=== PATIENT | female | born 1985 ===

== ENCOUNTER 2016-09-15 06:25 | Inpatient (IN) ==
[2016-09-15] MEDS ORDERED: ONDANSETRON 4 MG/2 ML VIAL IV PRN (07:22)
[2016-09-15] MEDS ORDERED: MEPERIDINE 50 MG/1 ML VIAL IV PRN (07:22)
[2016-09-15] MEDS ORDERED: OXYTOCIN/LR 20 UNIT/1,000 ML BAG IV SCH (07:30)
[2016-09-15] MEDS ORDERED: AMPICILLIN INJ 2,000 MG in SODIUM CHLORIDE 0.9% 100 ML IV ONE (07:42)
[2016-09-15 07:53] LABS: Basophils % 0.4 % (0.0-0.8); Eosinophils # 0.2 10*3/uL (0.0-0.87); Hematocrit 36.7 VOL% (35.7-47.0); Hemoglobin 12.5 GM/DL (12.0-16.0); Immature Granulocytes % 0.6 %; Immature Granulocytes Absolute 0.05 #; Lymphocytes # 1.7 10*3/uL (1.4-4.0); Lymphocytes % 21.3 % (21.3-54.2); Mean Corpuscular HGB Conc 34.1 GM/DL (32-36); Mean Corpuscular Hemoglobin 31 PG (27-34); Mean Corpuscular Volume 90.4 FL (87-102); Mean Platelet Volume 10.7 FL (9.6-12.0); Monocytes # 0.7 10*3/uL (0.11-0.8); Monocytes % 8.7 % (1.7-12.7); Neutrophils # 5.3 10*3/uL (1.4-7.4); Platelet Count 280 T/CUMM (130-400); Red Blood Count 4.06 MC/CUMM (3.8-5.5); Red Cell Distribution Width 13.3 % (9.3-17.3)
[2016-09-15] MEDS: LACTATED RINGERS 1,000 ML IV SCH ×3 (07:59→14:40)
[2016-09-15] MEDS ORDERED: PROMETHAZINE 25 MG/1 ML VIAL IM ONE (08:04)
[2016-09-15] MEDS ORDERED: hydrOXYzine HCL 25 MG/1 ML VIAL IM PRN (08:04)
[2016-09-15] MEDS ORDERED: diphenhydrAMINE 50 MG/1 ML VIAL IV PRN ×2 (08:04)
[2016-09-15] MEDS ORDERED: fentaNYL 2 MCG/ROPIV 0.2% EPID 150 ML EPIDURAL SCH (08:04)
[2016-09-15] MEDS ORDERED: ONDANSETRON 4 MG/2 ML VIAL IV ONE (08:04)
[2016-09-15] MEDS ORDERED: FAMOTIDINE 20 MG/2 ML VIAL IV ONE (08:04)
[2016-09-15] MEDS ORDERED: CITRIC ACID/SODIUM CITRATE 30 ML UDCUP PO ONE (08:04)
[2016-09-15] MEDS ORDERED: LACTATED RINGERS 1,000 ML IV ONE (08:04)
[2016-09-15 08:25] LABS: Albumin 2.6 G/DL (3.4-5.0); Bilirubin,Total 0.6 MG/DL (0.2-1.0); Calcium 9.4 MG/DL (8.5-10.1); Osmolality,Calculated 275.4 MOS/KG (273-304); Potassium 3.9 MMOL/L (3.5-5.1); Total Protein 6.1 G/DL (6.4-8.3)
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
[2016-09-15 10:12] LABS: HIV Antigen/Antibody Result Nonreactive (Nonreactive)
[2016-09-15] MEDS: ePHEDrine 50 MG/ML AMP IV PRN ×3 (11:49→12:36)
[2016-09-15] MEDS ORDERED: AMPICILLIN INJ 1,000 MG in SODIUM CHLORIDE 0.9% 100 ML IV SCH (12:00)
[2016-09-15 12:31] LABS: Apearance,Urine CLEAR (Clear); Bilirubin,Urine Negative (Negative); Blood, Urine Negative (Negative); Glucose,Urine (UA) Negative (Negative); Ketones,Urine 20 mg/dL (Negative); Mucus,Urine Occasional /LPF (Occasional); Nitrite,Urine Negative (Negative); Protein,Urine Negative; RBC,Urine 2 /HPF (0-4); Squamous Epithelial Cell,Urine Occasional /HPF (0-10); Urine Color Yellow (Yellow); Urine Urobilinogen < 2.0 EU/DL (0.2-1.0); WBC,Urine <1 /HPF (0-6)
[2016-09-15] MEDS ORDERED: ACETAMINOPHEN/CODEINE 300-30 MG TABLET PO PRN (16:22)
--- NOTE | 2016-09-15 17:49 | Event Note ---
HPI: Ms. Cole presented to the labor department for elective induction of labor due to term . The risk and benefits were thoroughly discussed with this patient significant other, plan of care was discussed with Dr. Gonzales and all parties were in agreement plan. Stage I: The patient was admitted she received IV fluids and IV Pitocin per protocol. Artificial rupture membranes was performed clear fluid noted. Epidural anesthesia was obtained. The patient progressed in labor with a CAT 1 tracing. She had a few episodes of the CAT 2 tracing which was correct with oxygenation and position change. Otherwise the patient had an uneventful course of labor. Stage II: The patient was complete and complained of pressure and desire to push. She pushed for approximately 5 minutes after which time the infant's head was delivered. The mouth and nose suctioned on perineum. The remainder the was delivered at 1609 a viable male infant was noted. Apgars were 8 at 1 minute and 9 at 5 minutes. weight was 7 lbs. 14 oz. A cord pH was obtained and sent to the lab. The was placed on the mom's abdomen for skin to skin bonding. Stage III: A spontaneous delivery of a Randolph placenta with a three-vessel cord noted. Placenta was further examined appeared to be grossly intact. The vagina cervix inspected with no tears or lacerations noted. Estimated blood loss is approximately 150 cc. At the time of dictation mother and baby both in stable condition.
[2016-09-15] MEDS ORDERED: ACETAMINOPHEN 325 MG TABLET PO PRN (20:25)
[2016-09-15] MEDS ORDERED: oxyCODONE/ACETAMINOPHEN 5-325 MG TABLET PO PRN (20:25)
[2016-09-15] MEDS ORDERED: HYDROCORTISONE 2.5% RECTAL CREAM 30 GM TUBE TOP PRN (20:25)
[2016-09-15] MEDS ORDERED: LANOLIN 50% CREAM 0.3 OZ TUBE TOP PRN (20:25)
[2016-09-15] MEDS ORDERED: WITCH HAZEL PADS 100/JAR TOP PRN (20:25)
[2016-09-15] MEDS ORDERED: BENZOCAINE 20%/MENTHOL 0.5% SPRAY 56 GM CAN TOP PRN (20:25)
[2016-09-15] MEDS ORDERED: BISACODYL 10 MG SUPP RECTAL PRN (20:25)
[2016-09-15] MEDS ORDERED: DIPH/TET/ACEL PERT BOOSTER VACCINE 0.5 ML VIAL IM ONE (20:25)
[2016-09-15] MEDS ORDERED: RHO(D) IMMUNE GLOBULIN 300 MCG SYRINGE IM ONE (20:25)
[2016-09-15] MEDS ORDERED: MEASLES/MUMPS/RUBELLA VACCINE 0.5 ML VIAL SUBCUT ONE (20:25)
[2016-09-15] MEDS: DOCUSATE SODIUM 100 MG CAPSULE PO SCH (21:43)
[2016-09-16] MEDS: IBUPROFEN 800 MG TABLET PO PRN ×3 (02:04→22:49)
[2016-09-16] MEDS: oxyCODONE/ACETAMINOPHEN 5-325 MG TABLET PO PRN ×2 (02:04→07:46)
[2016-09-16 06:26] LABS: Basophils % 0.3 % (0.0-0.8); Eosinophils # 0.2 10*3/uL (0.0-0.87); Eosinophils % 1.7 % (0.00-10.9); Hematocrit 34.3 VOL% (35.7-47.0); Hemoglobin 11.5 GM/DL (12.0-16.0); Immature Granulocytes % 0.5 %; Immature Granulocytes Absolute 0.05 #; Lymphocytes # 2.1 10*3/uL (1.4-4.0); Mean Corpuscular HGB Conc 33.5 GM/DL (32-36); Mean Corpuscular Hemoglobin 31 PG (27-34); Mean Corpuscular Volume 91.2 FL (87-102); Mean Platelet Volume 11.1 FL (9.6-12.0); Monocytes # 0.8 10*3/uL (0.11-0.8); Neutrophils # 7.8 10*3/uL (1.4-7.4); Neutrophils % 71.5 % (38.7-73.9); Platelet Count 258 T/CUMM (130-400); Red Blood Count 3.76 MC/CUMM (3.8-5.5); Red Cell Distribution Width 13.4 % (9.3-17.3); White Blood Count 10.9 T/CUMM (4-12)
--- NOTE | 2016-09-16 06:54 | Anesthesia Post-Op ---
Anesthesia Post OP - Post Ansesthetic Evaluation Patient seen in post op: Yes Resp: within normal limits CV: within normal limits Mental: within normal limits Temp: within normal limits [id number]: within normal limits Nausea and Vomiting: within normal limits Pain: within normal limits
[2016-09-16] MEDS: DOCUSATE SODIUM 100 MG CAPSULE PO SCH ×3 (07:47→22:49)
--- NOTE | 2016-09-16 09:09 | OB/GYN Progress Note ---
Assessment and Plan (1) Term Status: Acute Assessment and plan: Admit IV fluids IV Pitocin per protocol Artificial rupture membranes when appropriate Internal monitors if indicated Epidural anesthesia if desired Anticipate Current Visit: Yes (2) Vaginal delivery Status: Acute Assessment and plan: Initiate routine pp orders. 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 Bonding well with . 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 - Constitutional Vitals: Vital Signs Temp Pulse Resp BP Pulse Ox 09/16/16 07:21 97.3 F L 70 20 134/80 97 09/16/16 03:00 18 09/15/16 20:15 97.7 F 90 18 112/57 96 09/15/16 16:00 97.9 F 71 18 108/55 100 09/15/16 12:00 98.2 F 88 20 140/59 96 General appearance: no acute distress - Antepartum / Post Post Exam Breast: bilateral: normal Abdomen obstetrics: Present: bowel sounds normal Vagina: Present: normal moisture, discharge (light lochia rubra) Uterus exam: Present: enlarged Anus/Rectum: Present: normal perianal skin - Respiratory Respiratory exam: Present: clear to auscultation bilaterally - Cardiovascular Cardiovascular exam: Present: regular rate and rhythm - GI/Abdominal GI/Abdominal exam: Present: normal bowel sounds, soft - Extremities Exam Extremities exam: Present: normal inspection - Neurological Exam Neurological exam: Present: alert, oriented X3 - Psychiatric Psychiatric exam: Present: normal affect, normal mood - Skin Skin exam: Present: normal color, warm Results - Labs CBC & BMP: 09/16/16 04:28 09/15/16 07:37
[2016-09-17 07:37] VITALS: BP 122/71
[2016-09-17] MEDS: IBUPROFEN 800 MG TABLET PO PRN (08:25)
[2016-09-17] MEDS: oxyCODONE/ACETAMINOPHEN 5-325 MG TABLET PO PRN (08:26)
[2016-09-17] MEDS: DOCUSATE SODIUM 100 MG CAPSULE PO SCH (08:26)
--- NOTE | 2016-09-17 09:05 | Discharge Summary ---
Hospital Course - Hospital Course Hospital Course: Ms. Cole presented to the labor department for elective induction of labor due to term . She delivered a viable with no complications. She has followed a normal course and she has done well. Her bleeding is minimal with no odor. Her perineum is intact. Her fundus is firm and midline. Her vital signs and lab values are stable. She is bonding well with her . She will be discharged home with prescriptions for pain and a follow- up appointment in our office. Diagnosis - Discharge Diagnosis (1) Term Status: Acute (2) Vaginal delivery Status: Acute Specialty Discharge - Follow Up or Referrals Follow up with: Mayte Gonzales MD [Physician] - (Follow-up in 6 weeks) Discharge Plan - Discharge Data Disposition: Disch To Home/Self Care Condition at Discharge: Stable Discharge Diet: advance to your usual diet, regular diet Activity: resume usual activities as tolerated Hygiene: may shower Weight Bearing at Discharge: weight bear as tolerated Driving: no restrictions Contact your physician if you experience:: fever over 101, pain uncontrolled by pain medications - Discharge Medications New Acetamin/Codeine 300-30 Tab [Tylenol/Codeine #3] 2 tablet PO Q4H PRN #30 tablet PRN Reason: Pain Mild (1-3) Ibuprofen Tab [Motrin Tab] 800 mg PO Q6H PRN #30 tablet PRN Reason: Pain Moderate (4-7) No Action Multivitamin () [ Vitamin] 1 tablet PO DAILY - Follow Up or Referral - Forms/Instructions Exam - Constitutional Vitals: Period Temp Pulse Resp BP Sys/Parham Pulse Ox Last 24 Hr 96.8 F-98.2 F 62-81 18-20 96-124/57-73 95-99 General appearance: no acute distress - Respiratory Respiratory exam: Present: clear to auscultation bilaterally - Cardiovascular Cardiovascular exam: Present: regular rate and rhythm - GI/Abdominal GI/Abdominal exam: Present: normal bowel sounds, soft - Extremities Exam Extremities exam: Present: normal inspection - Neurological Exam Neurological exam: Present: alert, oriented X3 - Psychiatric Psychiatric exam: Present: normal affect, normal mood - Skin Skin exam: Present: normal color, warm DS: Provider Date of admission: 09/15/16 06:45 Primary care physician: River Arevalo MD Attending physician on admission: Mayte Gonzales MD Consults: 09/15/16 07:22 Consult to Anesthesiology [CONS] Routine Consulting Provider: Reason for Anesthesiology: Epidural Consult Comment: Epidural for pain managment 09/15/16 20:25 Consult to Hvac Service Manager [CONS] Routine Consult Hvac Service Manager: Breast Feeding 09/16/16 07:31 Consult to Dietitian [CONS] Routine Reason for Dietitian: Dietary Consult Discharging clinician: Nicole Aggarwal CNM Expected date of discharge: 09/17/16
== END 2016-09-17 11:25 | disposition home or self-care (01) | DRG 560 ==
LOC: N.LDOUT 06:25 → N.LD 06:30 → N.OB 20:15
PROVIDERS: ADMIT Obstetrics & Gynecology; ATTEND Obstetrics & Gynecology

== ENCOUNTER 2018-01-27 13:23 | Inpatient (IN) ==
[2018-01-27] MEDS ORDERED: LACTATED RINGERS 250 ML IV ONE (14:16)
[2018-01-27] MEDS ORDERED: BUTORPHANOL 2 MG/ML VIAL IV PRN (14:16)
[2018-01-27] MEDS ORDERED: MEPERIDINE 50 MG/1 ML VIAL IV PRN (14:16)
[2018-01-27] MEDS ORDERED: ONDANSETRON 4 MG/2 ML VIAL IV PRN (14:16)
[2018-01-27 14:46] LABS: Basophils % 0.4 % (0.0-0.8); Eosinophils # 0.3 10*3/uL (0.0-0.87); Eosinophils % 3.9 % (0.00-10.9); Hematocrit 34.7 VOL% (35.7-47.0); Hemoglobin 11.3 GM/DL (12.0-16.0); Immature Granulocytes % 0.4 %; Immature Granulocytes Absolute 0.03 #; Lymphocytes # 1.5 10*3/uL (1.4-4.0); Lymphocytes % 19.4 % (21.3-54.2); Mean Corpuscular HGB Conc 32.6 GM/DL (32-36); Mean Corpuscular Hemoglobin 29 PG (27-34); Mean Corpuscular Volume 90.1 FL (87-102); Mean Platelet Volume 10.6 FL (9.6-12.0); Monocytes # 0.5 10*3/uL (0.11-0.8); Monocytes % 6.8 % (1.7-12.7); Neutrophils # 5.3 10*3/uL (1.4-7.4); Neutrophils % 69.1 % (38.7-73.9); Platelet Count 271 T/CUMM (130-400); Red Blood Count 3.85 MC/CUMM (3.8-5.5); Red Cell Distribution Width 13.3 % (9.3-17.3); White Blood Count 7.6 T/CUMM (4-12)
[2018-01-27 14:56] LABS: Albumin 2.3 G/DL (3.4-5.0); Bilirubin,Total 0.6 MG/DL (0.2-1.0); Calcium 8.7 MG/DL (8.5-10.1); Osmolality,Calculated 280.3 MOS/KG (273-304); Potassium 3.9 MMOL/L (3.5-5.1); Total Protein 6.7 G/DL (6.4-8.3)
[2018-01-27] MEDS ORDERED: DINOPROSTONE VAG GEL 10 MG SYRINGE VAG ONE (15:39)
[2018-01-28] MEDS ORDERED: CITRIC ACID/SODIUM CITRATE 30 ML UDCUP PO ONE (00:19)
[2018-01-28] MEDS ORDERED: FAMOTIDINE 20 MG/2 ML VIAL IV ONE (00:19)
[2018-01-28] MEDS ORDERED: ePHEDrine 50 MG/ML AMP ONE (00:24)
[2018-01-28] MEDS ORDERED: LIDOCAINE 1% 50 ML VIAL ONE (00:26)
[2018-01-28] MEDS ORDERED: miSOPROStol 200 MCG TABLET ONE (00:26)
[2018-01-28] MEDS ORDERED: fentaNYL 2 MCG/ROPIV 0.2% EPID 100 ML EPIDURAL SCH (00:30)
[2018-01-28] MEDS: LACTATED RINGERS 1,000 ML IV SCH ×2 (00:35→01:56)
[2018-01-28] MEDS ORDERED: CARBOPROST TROMETHAMINE 250 MCG/ML AMP IM ONE (00:57)
[2018-01-28] MEDS ORDERED: METHYLERGONOVINE 0.2 MG/1 ML AMP ONE (00:57)
[2018-01-28] MEDS ORDERED: OXYTOCIN/LR 20 UNIT/1,000 ML BAG IV ONE (01:52)
[2018-01-28] MEDS ORDERED: OXYTOCIN/LR 20 UNIT/1,000 ML BAG IV SCH (05:50)
[2018-01-28 06:59] LABS: Apearance,Urine CLEAR (Clear); Bilirubin,Urine Negative (Negative); Blood, Urine Negative (Negative); Glucose,Urine (UA) Negative (Negative); Ketones,Urine Negative (Negative); Mucus,Urine Occasional /LPF (Occasional); Nitrite,Urine Negative (Negative); Protein,Urine Negative; RBC,Urine 1 /HPF (0-4); Squamous Epithelial Cell,Urine Occasional /HPF (0-10); Urine Color Yellow (Yellow); Urine Urobilinogen < 2.0 EU/DL (0.2-1.0); WBC,Urine 2 /HPF (0-6)
[2018-01-28] MEDS ORDERED: OXYTOCIN/LR 30 UNIT/1,000 ML BAG IV ONE (08:16)
[2018-01-28] MEDS ORDERED: IBUPROFEN 800 MG TABLET PO ONE (11:03)
[2018-01-28] MEDS: oxyCODONE/ACETAMINOPHEN 5-325 MG TABLET PO PRN (15:08)
[2018-01-28] MEDS: IBUPROFEN 800 MG TABLET PO PRN (18:37)
[2018-01-29 04:58] LABS: Basophils % 0.4 % (0.0-0.8); Eosinophils # 0.6 10*3/uL (0.0-0.87); Eosinophils % 6.2 % (0.00-10.9); Hematocrit 34.7 VOL% (35.7-47.0); Hemoglobin 11.2 GM/DL (12.0-16.0); Immature Granulocytes % 0.6 %; Immature Granulocytes Absolute 0.06 #; Lymphocytes # 2.2 10*3/uL (1.4-4.0); Lymphocytes % 23.2 % (21.3-54.2); Mean Corpuscular HGB Conc 32.3 GM/DL (32-36); Mean Corpuscular Hemoglobin 30 PG (27-34); Mean Corpuscular Volume 91.6 FL (87-102); Monocytes # 0.8 10*3/uL (0.11-0.8); Monocytes % 8.7 % (1.7-12.7); Neutrophils # 5.8 10*3/uL (1.4-7.4); Neutrophils % 60.9 % (38.7-73.9); Platelet Count 244 T/CUMM (130-400); Red Blood Count 3.79 MC/CUMM (3.8-5.5); Red Cell Distribution Width 13.4 % (9.3-17.3); White Blood Count 9.6 T/CUMM (4-12)
[2018-01-29] MEDS: oxyCODONE/ACETAMINOPHEN 5-325 MG TABLET PO PRN ×2 (08:12→19:45)
[2018-01-29] MEDS: IBUPROFEN 800 MG TABLET PO PRN ×2 (08:13→19:44)
[2018-01-30] MEDS: IBUPROFEN 800 MG TABLET PO PRN ×2 (03:48→11:10)
[2018-01-30] MEDS: oxyCODONE/ACETAMINOPHEN 5-325 MG TABLET PO PRN ×2 (03:48→11:09)
[2018-01-30 07:17] VITALS: BP 120/68
[2018-01-30] MEDS ORDERED: DOCUSATE SODIUM 100 MG CAPSULE PO SCH (09:00)
[2018-01-30] MEDS ORDERED: DIPH/TET/ACEL PERT BOOSTER VACCINE 0.5 ML VIAL IM ONE (10:14)
[2018-01-30] MEDS ORDERED: INFLUENZA VIRUS VACCINE 0.5 ML SYRINGE IM ONE (10:14)
[2018-01-30] MEDS ORDERED: MEASLES/MUMPS/RUBELLA VACCINE 0.5 ML VIAL SUBCUT ONE (10:14)
== END 2018-01-30 11:50 | disposition home or self-care (01) | DRG 560 ==
LOC: N.LDOUT 13:23 → N.LD 13:24 → N.OB 01-28 11:46
PROVIDERS: ADMIT Obstetrics & Gynecology; ATTEND Obstetrics & Gynecology

== ENCOUNTER 2019-01-31 06:39 | Inpatient (IN) ==
[2019-01-31] MEDS ORDERED: FAMOTIDINE 20 MG/2 ML VIAL IV ONE (07:25)
[2019-01-31] MEDS ORDERED: ceFAZolin 3,000 MG in SYRINGE 1 EACH IV ONE (07:25)
[2019-01-31] MEDS ORDERED: CITRIC ACID/SODIUM CITRATE 30 ML UDCUP PO ONE (07:25)
[2019-01-31] MEDS ORDERED: OXYTOCIN 10 UNIT/ML VIAL IM ONE (07:27)
[2019-01-31] MEDS ORDERED: OXYTOCIN/LR 30 UNIT/1,000 ML BAG IV ONE (07:27)
[2019-01-31] MEDS ORDERED: LACTATED RINGERS 1,000 ML IV ONE ×2 (07:28→11:47)
[2019-01-31] MEDS ORDERED: LACTATED RINGERS 1,000 ML IV SCH (07:30)
[2019-01-31 07:51] LABS: Basophils % 0.6 % (0.0-0.8); Eosinophils # 0.3 10*3/uL (0.0-0.87); Eosinophils % 4.6 % (0.00-10.9); Hematocrit 35.3 VOL% (35.7-47.0); Hemoglobin 11.5 GM/DL (12.0-16.0); Immature Granulocytes % 0.6 %; Immature Granulocytes Absolute 0.04 #; Lymphocytes # 1.9 10*3/uL (1.4-4.0); Mean Corpuscular HGB Conc 32.6 GM/DL (32-36); Mean Corpuscular Volume 91.7 FL (87-102); Mean Platelet Volume 9.9 FL (9.6-12.0); Monocytes % 7.8 % (1.7-12.7); Neutrophils % 59.4 % (38.7-73.9); Platelet Count 355 T/CUMM (130-400); Red Blood Count 3.85 MC/CUMM (3.8-5.5); Red Cell Distribution Width 13.2 % (9.3-17.3); White Blood Count 7.2 T/CUMM (4-12)
[2019-01-31 08:41] LABS: Albumin 2.3 G/DL (3.4-5.0); Bilirubin,Total 0.5 MG/DL (0.2-1.0); Calcium 8.3 MG/DL (8.5-10.1); Osmolality,Calculated 276.4 MOS/KG (273-304); Total Protein 6.4 G/DL (6.4-8.3)
[2019-01-31] MEDS ORDERED: DEXAMETHASONE 4 MG/1 ML VIAL ONE (09:45)
[2019-01-31] MEDS ORDERED: ROPIVACAINE 0.5% 30 ML VIAL ONE (09:45)
[2019-01-31 09:47] LABS: Cord Venous Blood HCO3 22.5 MMOL/L; Cord Venous Blood PCO2 44.8 MMHG; Cord Venous Blood PO2 33.3
[2019-01-31 09:57] LABS: Apearance,Urine CLEAR (Clear); Bilirubin,Urine Negative (Negative); Blood, Urine Negative (Negative); Glucose,Urine (UA) Negative (Negative); Ketones,Urine Negative (Negative); Mucus,Urine Occasional /LPF (Occasional); Nitrite,Urine Negative (Negative); Protein,Urine Negative; RBC,Urine 7 /HPF (0-4); Squamous Epithelial Cell,Urine Occasional /HPF (0-10); Urine Color Yellow (Yellow); Urine Specific Gravity 1.016 (1.001-1.035); Urine Urobilinogen < 2.0 EU/DL (0.2-1.0); WBC,Urine <1 /HPF (0-6)
[2019-01-31] MEDS ORDERED: OXYTOCIN/LR 20 UNIT/1,000 ML BAG IV ONE (10:04)
[2019-01-31] MEDS ORDERED: ACETAMINOPHEN 325 MG TABLET PO PRN (10:04)
[2019-01-31] MEDS ORDERED: ONDANSETRON 4 MG/2 ML VIAL IV PRN (10:04)
[2019-01-31] MEDS ORDERED: RHO(D) IMMUNE GLOBULIN 300 MCG SYRINGE IM ONE (10:04)
[2019-01-31] MEDS ORDERED: BUPIVACAINE SPINAL 0.75% 2 ML AMP SPINAL ONE (11:46)
[2019-01-31] MEDS ORDERED: ONDANSETRON 4 MG/2 ML VIAL ONE (11:47)
[2019-01-31] MEDS ORDERED: MORPHINE 10 MG/10 ML VIAL ONE (11:47)
[2019-01-31] MEDS ORDERED: ePHEDrine 50 MG/ML AMP ONE (11:47)
[2019-01-31] MEDS ORDERED: PHENYLEPHRINE 1 MG/10 ML SYRINGE IV ONE (11:47)
[2019-01-31] MEDS: ceFAZolin 1,000 MG in SYRINGE 1 EACH IV SCH (17:45)
[2019-01-31 18:07] LABS: Basophils % 0.1 % (0.0-0.8); Hematocrit 33.2 VOL% (35.7-47.0); Hemoglobin 10.7 GM/DL (12.0-16.0); Immature Granulocytes % 0.4 %; Immature Granulocytes Absolute 0.06 #; Lymphocytes # 0.6 10*3/uL (1.4-4.0); Lymphocytes % 4.3 % (21.3-54.2); Mean Corpuscular HGB Conc 32.2 GM/DL (32-36); Mean Corpuscular Volume 93.5 FL (87-102); Mean Platelet Volume 9.7 FL (9.6-12.0); Monocytes % 2.4 % (1.7-12.7); Neutrophils % 92.8 % (38.7-73.9); Platelet Count 350 T/CUMM (130-400); Red Blood Count 3.55 MC/CUMM (3.8-5.5); Red Cell Distribution Width 13.2 % (9.3-17.3); White Blood Count 14.8 T/CUMM (4-12)
[2019-01-31 18:29] LABS: Lymphocytes 2 % (20-55); Segmented Neutrophils 93 % (50-85); Total Cells Counted 100
[2019-01-31 18:30] LABS: Ovalocytes Slight; Platelet Estimate Normal
[2019-01-31 18:32] LABS: Hypochromasia Slight; Microcytosis Slight
[2019-01-31] MEDS: LACTATED RINGERS 1,000 ML IV SCH (22:10)
[2019-01-31] MEDS: DOCUSATE SODIUM 100 MG CAPSULE PO SCH (22:50)
[2019-02-01] MEDS ORDERED: ceFAZolin 1,000 MG in SYRINGE 1 EACH IV SCH (02:00)
[2019-02-01] MEDS: ceFAZolin 1,000 MG in SYRINGE 1 EACH IV SCH (02:27)
[2019-02-01 03:35] LABS: Basophils % 0.1 % (0.0-0.8); Eosinophils % 0.3 % (0.00-10.9); Hematocrit 27.3 VOL% (35.7-47.0); Hemoglobin 8.8 GM/DL (12.0-16.0); Immature Granulocytes % 0.5 %; Immature Granulocytes Absolute 0.05 #; Lymphocytes # 1.5 10*3/uL (1.4-4.0); Lymphocytes % 14.1 % (21.3-54.2); Mean Corpuscular HGB Conc 32.2 GM/DL (32-36); Mean Corpuscular Volume 93.2 FL (87-102); Mean Platelet Volume 9.8 FL (9.6-12.0); Monocytes % 8.4 % (1.7-12.7); Neutrophils % 76.6 % (38.7-73.9); Platelet Count 319 T/CUMM (130-400); Red Blood Count 2.93 MC/CUMM (3.8-5.5); Red Cell Distribution Width 13.3 % (9.3-17.3); White Blood Count 10.4 T/CUMM (4-12)
[2019-02-01] MEDS: DOCUSATE SODIUM 100 MG CAPSULE PO SCH ×2 (09:02→20:49)
[2019-02-01] MEDS: METOCLOPRAMIDE 10 MG TABLET PO SCH ×3 (09:02→20:49)
[2019-02-01] MEDS: IBUPROFEN 800 MG TABLET PO PRN (09:03)
[2019-02-01] MEDS: MULTIVITAMIN (PRENATAL) TABLET PO SCH (09:03)
[2019-02-01] MEDS: SIMETHICONE CHEW 80 MG TABLET PO PRN (09:03)
[2019-02-01] MEDS: MAGNESIUM HYDROXIDE SUSP 30 ML UDCUP PO PRN (09:03)
[2019-02-01] MEDS: LACTATED RINGERS 1,000 ML IV SCH ×2 (09:04→14:19)
[2019-02-02] MEDS: METOCLOPRAMIDE 10 MG TABLET PO SCH ×2 (05:30→13:09)
[2019-02-02] MEDS ORDERED: FERROUS SULFATE 325 MG TABLET PO SCH (09:00)
[2019-02-02] MEDS: MAGNESIUM HYDROXIDE SUSP 30 ML UDCUP PO PRN (09:33)
[2019-02-02] MEDS: MULTIVITAMIN (PRENATAL) TABLET PO SCH (09:33)
[2019-02-02] MEDS: SIMETHICONE CHEW 80 MG TABLET PO PRN (09:33)
[2019-02-02] MEDS: DOCUSATE SODIUM 100 MG CAPSULE PO SCH (09:33)
[2019-02-02] MEDS: IBUPROFEN 800 MG TABLET PO PRN (09:36)
[2019-02-02 13:06] VITALS: BP 106/62
== END 2019-02-02 15:40 | disposition home or self-care (01) | DRG 540 ==
LOC: N.LD 06:39 → N.OB 11:55
PROVIDERS: ADMIT Obstetrics & Gynecology; ATTEND Obstetrics & Gynecology
PROC: LDCSECT (ICD-10-PCS; 2019-01-31 08:15)

== ENCOUNTER 2020-04-25 10:37 | Inpatient (IN) ==
[2020-04-25] MEDS ORDERED: CITRIC ACID/SODIUM CITRATE 30 ML UDCUP PO ONE (10:50)
[2020-04-25] MEDS ORDERED: ceFAZolin 3,000 MG in SYRINGE 1 EACH IV ONE (10:50)
[2020-04-25 11:16] LABS: Basophils % 0.3 % (0.0-0.8); Eosinophils # 0.2 10*3/uL (0.0-0.87); Eosinophils % 2.1 % (0.00-10.9); Hematocrit 37.6 VOL% (35.7-47.0); Hemoglobin 11.9 GM/DL (12.0-16.0); Immature Granulocytes % 0.4 %; Immature Granulocytes Absolute 0.03 #; Lymphocytes # 1.4 10*3/uL (1.4-4.0); Lymphocytes % 19.7 % (21.3-54.2); Mean Corpuscular HGB Conc 31.6 GM/DL (32-36); Mean Corpuscular Volume 91.7 FL (87-102); Mean Platelet Volume 9.6 FL (9.6-12.0); Monocytes % 7.5 % (1.7-12.7); Platelet Count 305 T/CUMM (130-400); Red Cell Distribution Width 14.2 % (9.3-17.3); White Blood Count 7.2 T/CUMM (4-12)
[2020-04-25] MEDS: LACTATED RINGERS 1,000 ML IV SCH ×3 (11:20→23:07)
[2020-04-25 11:39] LABS: Albumin 2.3 G/DL (3.4-5.0); Bilirubin,Total 0.8 MG/DL (0.2-1.0); Calcium 8.6 MG/DL (8.5-10.1); Osmolality,Calculated 271.7 MOS/KG (273-304); Potassium 3.9 MMOL/L (3.5-5.1); Total Protein 6.5 G/DL (5.0-7.5)
[2020-04-25] MEDS ORDERED: ONDANSETRON 4 MG/2 ML VIAL ONE (12:44)
[2020-04-25] MEDS ORDERED: PHENYLEPHRINE 1 MG/10 ML SYRINGE IV ONE (12:44)
[2020-04-25] MEDS ORDERED: BUPIVACAINE SPINAL 0.75% 2 ML AMP SPINAL ONE (12:44)
[2020-04-25] MEDS ORDERED: fentaNYL 100 MCG/2 ML VIAL ONE (12:45)
[2020-04-25] MEDS ORDERED: MORPHINE 10 MG/10 ML VIAL ONE (12:45)
[2020-04-25] MEDS ORDERED: OXYTOCIN 10 UNIT/ML VIAL IM ONE (12:54)
[2020-04-25] MEDS ORDERED: FAMOTIDINE 20 MG/2 ML VIAL IV ONE (12:54)
[2020-04-25] MEDS ORDERED: OXYTOCIN/LR 30 UNIT/1,000 ML BAG IV ONE ×2 (13:05→16:06)
[2020-04-25] MEDS ORDERED: CARBOPROST TROMETHAMINE 250 MCG/ML AMP IM ONE (13:09)
[2020-04-25] MEDS ORDERED: TRANEXAMIC ACID 1,000 MG/10 ML VIAL ONE (13:09)
[2020-04-25] MEDS ORDERED: METHYLERGONOVINE 0.2 MG/1 ML AMP ONE (13:09)
[2020-04-25] MEDS ORDERED: miSOPROStoL 200 MCG TABLET ONE (13:09)
[2020-04-25] MEDS ORDERED: SODIUM CHLORIDE 0.9% 0 ML IV ONE (13:10)
[2020-04-25] MEDS ORDERED: ePHEDrine 50 MG/ML VIAL ONE (13:44)
[2020-04-25] MEDS ORDERED: DEXAMETHASONE 4 MG/1 ML VIAL ONE (14:04)
[2020-04-25] MEDS ORDERED: BUPIVACAINE MPF 0.25% 30 ML VIAL ONE ×2 (14:04)
[2020-04-25 14:11] LABS: Cord Arterial Blood HCO3 23.5 MMOL/L
[2020-04-25 14:15] LABS: Cord Venous Blood HCO3 23.2 MMOL/L; Cord Venous Blood PCO2 43.2 MMHG; Cord Venous Blood PO2 41.2 MMHG
[2020-04-25 14:52] LABS: Bilirubin,Urine Negative (Negative); Blood, Urine Negative (Negative); Glucose,Urine (UA) Negative (Negative); Ketones,Urine 20 mg/dL (Negative); Mucus,Urine Occasional /LPF (Occasional); Nitrite,Urine Negative (Negative); Protein,Urine Negative; Squamous Epithelial Cell,Urine Occasional /HPF (0-10); Urine Appearance CLEAR (Clear); Urine Color Yellow (Yellow); WBC,Urine <1 /HPF (0-6)
[2020-04-25] MEDS ORDERED: OXYTOCIN/LR 20 UNIT/1,000 ML BAG IV ONE ×2 (15:43→17:13)
[2020-04-25] MEDS ORDERED: KETOROLAC 30 MG/1 ML VIAL IV SCH (16:00)
[2020-04-25] MEDS ORDERED: ACETAMINOPHEN 500 MG TABLET PO SCH (16:00)
[2020-04-25] MEDS ORDERED: RHO(D) IMMUNE GLOBULIN 300 MCG SYRINGE IM ONE (17:13)
[2020-04-25] MEDS ORDERED: ACETAMINOPHEN 325 MG TABLET PO PRN (17:13)
[2020-04-25] MEDS ORDERED: SIMETHICONE CHEW 80 MG TABLET PO PRN (17:13)
[2020-04-25] MEDS ORDERED: ONDANSETRON 4 MG/2 ML VIAL IV PRN (17:13)
[2020-04-25] MEDS: ceFAZolin 1,000 MG in SYRINGE 1 EACH IV SCH (20:28)
[2020-04-25 20:55] LABS: Basophils % 0.2 % (0.0-0.8); Hematocrit 33.6 VOL% (35.7-47.0); Hemoglobin 10.7 GM/DL (12.0-16.0); Immature Granulocytes % 0.7 %; Immature Granulocytes Absolute 0.09 #; Lymphocytes # 0.6 10*3/uL (1.4-4.0); Lymphocytes % 4.5 % (21.3-54.2); Mean Corpuscular HGB Conc 31.8 GM/DL (32-36); Mean Corpuscular Volume 91.8 FL (87-102); Mean Platelet Volume 9.8 FL (9.6-12.0); Monocytes % 2.1 % (1.7-12.7); Neutrophils % 92.5 % (38.7-73.9); Platelet Count 302 T/CUMM (130-400); Red Blood Count 3.66 MC/CUMM (3.8-5.5); Red Cell Distribution Width 14.1 % (9.3-17.3); White Blood Count 13.7 T/CUMM (4-12)
[2020-04-25] MEDS: KETOROLAC 30 MG/1 ML VIAL IV SCH (22:05)
[2020-04-25] MEDS: ACETAMINOPHEN 500 MG TABLET PO SCH (22:06)
[2020-04-25] MEDS: DOCUSATE SODIUM 100 MG CAPSULE PO SCH (22:13)
[2020-04-26 00:28] LABS: Anisocytosis Slight; Macrocytosis Slight; Microcytosis Slight; Ovalocytes Few; Platelet Estimate Adequate; Polychromasia Few
[2020-04-26] MEDS: KETOROLAC 30 MG/1 ML VIAL IV SCH (04:02)
[2020-04-26] MEDS: ACETAMINOPHEN 500 MG TABLET PO SCH ×3 (04:10→17:02)
[2020-04-26] MEDS: ceFAZolin 1,000 MG in SYRINGE 1 EACH IV SCH (05:23)
[2020-04-26 06:12] LABS: Basophils % 0.3 % (0.0-0.8); Eosinophils # 0.1 10*3/uL (0.0-0.87); Eosinophils % 0.6 % (0.00-10.9); Hematocrit 30.8 VOL% (35.7-47.0); Hemoglobin 10.1 GM/DL (12.0-16.0); Immature Granulocytes % 0.5 %; Immature Granulocytes Absolute 0.05 #; Lymphocytes # 1.5 10*3/uL (1.4-4.0); Lymphocytes % 14.6 % (21.3-54.2); Mean Corpuscular HGB Conc 32.8 GM/DL (32-36); Mean Corpuscular Volume 90.9 FL (87-102); Mean Platelet Volume 9.9 FL (9.6-12.0); Monocytes % 6.6 % (1.7-12.7); Neutrophils % 77.4 % (38.7-73.9); Platelet Count 279 T/CUMM (130-400); Red Blood Count 3.39 MC/CUMM (3.8-5.5); Red Cell Distribution Width 14.1 % (9.3-17.3); White Blood Count 10.1 T/CUMM (4-12)
[2020-04-26] MEDS: DOCUSATE SODIUM 100 MG CAPSULE PO SCH ×2 (08:00→21:17)
[2020-04-26] MEDS: IBUPROFEN 800 MG TABLET PO PRN ×2 (08:00→16:13)
[2020-04-26] MEDS: MAGNESIUM HYDROXIDE SUSP 30 ML UDCUP PO PRN ×2 (08:00→21:17)
[2020-04-26] MEDS: MULTIVITAMIN (PRENATAL) TABLET PO SCH (08:00)
[2020-04-26] MEDS: LACTATED RINGERS 1,000 ML IV SCH (10:23)
[2020-04-27] MEDS: IBUPROFEN 800 MG TABLET PO PRN (04:00)
[2020-04-27] MEDS ORDERED: INFLUENZA VIRUS VACCINE 0.5 ML SYRINGE IM ONE (08:00)
[2020-04-27] MEDS: MULTIVITAMIN (PRENATAL) TABLET PO SCH (08:15)
[2020-04-27] MEDS: DOCUSATE SODIUM 100 MG CAPSULE PO SCH (08:15)
[2020-04-27 08:27] VITALS: BP 99/53
[2020-04-27] MEDS ORDERED: DIPH/TET/ACEL PERT BOOSTER VACCINE 0.5 ML VIAL IM ONE (11:49)
== END 2020-04-27 15:30 | disposition home or self-care (01) | DRG 540 ==
LOC: N.LD 10:37 → N.OB 17:57
PROVIDERS: ADMIT Obstetrics & Gynecology; ATTEND Obstetrics & Gynecology